=== PATIENT | female | born 1970 | race Caucasian/White ===

== ENCOUNTER 2017-12-09 16:16 | Inpatient (IN) | payer MEDICAID ==
[~2017-12-09] VITALS: Ht 162.6 cm; Wt 46.8 kg
[2017-12-09] MEDS ORDERED: VENL-53 PO (17:20)
[2017-12-09] MEDS ORDERED: DIVA125T32 PO (17:20)
[2017-12-09] MEDS ORDERED: GABA-529 PO (17:20)
[2017-12-09 17:35] LABS: BASOPHILS % (AUTO) 0.7 % (0.0-2.0); EOSINOPHILS % (AUTO) 0.7 % (1.0-6.0); HEMATOCRIT 33.4 % (36-46); HEMOGLOBIN 11.4 g/dL (12.0-16.0); LYMPHOCYTES # (AUTO) 1.2 K/uL (1.0-4.8); MEAN CORPUSCULAR HEMOGLOBIN 28.4 pg (26.0-34.0); MEAN CORPUSCULAR HGB CONC 34.1 G/dL (31.0-37.0); MEAN CORPUSCULAR VOLUME 83 fL (80-100); MONOCYTES # (AUTO) 0.6 K/uL (0.1-1.0); MONOCYTES % (AUTO) 9.7 % (2.0-9.0); NEUTROPHILS # (AUTO) 4.3 K/uL (1.8-7.7); NEUTROPHILS % (AUTO) 69.9 % (40.0-70.0); PLATELET COUNT (AUTO) 198 K/uL (150-450); RED BLOOD CELL COUNT(AUTO) 4.01 MIL/uL (4.00-5.20)
[2017-12-09 17:50] LABS: AMPHET/METH SCREEN,URINE POSITIVE (NEGATIVE); BARBITURATE SCREEN, URINE NEGATIVE (NEGATIVE); BENZODIAZEPINES SCREEN,URINE NEGATIVE (NEGATIVE); CANNABINOID SCREEN,URINE NEGATIVE (NEGATIVE); COCAINE SCREEN,URINE NEGATIVE (NEGATIVE); METHADONE SCREEN, URINE NEGATIVE (NEGATIVE); OPIATE SCREEN,URINE NEGATIVE (NEGATIVE)
[2017-12-09 17:51] LABS: PHENCYCLIDINE SCREEN,URINE NEGATIVE (NEGATIVE)
[2017-12-09 17:54] LABS: ANION GAP 9 mmol/L (8-16); CALCIUM, TOTAL 8.7 mg/dL (8.8-10.5); CARBON DIOXIDE 26 mmol/L (22-29); CHLORIDE 102 mmol/L (98-107); CREATININE 0.65 mg/dL (0.60-1.30); GLOMERULAR FILTR. RATE CALC > 60 mL/min (>60); GLUCOSE,RANDOM 100 mg/dL (70-110); POTASSIUM 3.7 mmol/L (3.5-5.1); SODIUM SERUM 137 mmol/L (136-145); UREA NITROGEN, BLOOD 20 mg/dL (7-18)
[2017-12-09 17:55] LABS: ALANINE AMINOTRANSFERASE 21 U/L (12-78); ALBUMIN 3.4 g/dL (3.4-5.0); ALKALINE PHOSPHATASE 85 U/L (46-116); ASPARTATE AMINOTRANSFERASE 21 U/L (15-37); BILIRUBIN,TOTAL 0.3 mg/dL (0.1-1.0); TOTAL PROTEIN, SERUM 9.1 g/dL (6.4-8.2)
[2017-12-09 17:58] LABS: VALPROIC ACID < 3 mcg/mL (50-100)
[2017-12-09] MEDS ORDERED: LORazepam 2 MG TABLET PO PRN (20:30)
[2017-12-09] MEDS ORDERED: OLANZapine 5 MG RAPDIS TABLET PO PRN (20:30)
[2017-12-09] MEDS ORDERED: ZOLPIDEM TARTRATE 10 MG TABLET PO PRN (20:30)
[2017-12-10] MEDS ORDERED: FOLI1 PO (08:45)
[2017-12-10] MEDS ORDERED: OMEP20 PO (08:45)
[2017-12-10] MEDS ORDERED: BICT1TAB PO (08:45)
[2017-12-10] MEDS ORDERED: GABA-533 PO (08:48)
[2017-12-10] MEDS ORDERED: THIA100T67 PO (08:54)
[2017-12-10] MEDS ORDERED: DIVA-78 PO (08:54)
[2017-12-10] MEDS ORDERED: VENL-193 PO (08:54)
[2017-12-10] MEDS ORDERED: PRAZ2 PO (08:54)
[2017-12-10] MEDS ORDERED: ALBU8HFA IH (08:54)
[2017-12-10] MEDS ORDERED: ACET-66 PO (08:54)
[2017-12-10] MEDS ORDERED: AMLO-511 PO (08:54)
[2017-12-10 09:01] LABS: CHOL/HDL RATIO 4.9 (3.9-5.7)
[2017-12-10] MEDS ORDERED: ACETAMINOPHEN 325 MG TABLET PO PRN (12:15)
[2017-12-10] MEDS ORDERED: GuaiFENesin/D-METHORPHAN [SUGAR-FREE] 200-20MG/10 ML SYRUP UDCUP PO PRN (12:15)
[2017-12-10] MEDS ORDERED: PROMETHAZINE HCL 25 MG TABLET PO PRN (12:15)
[2017-12-10] MEDS ORDERED: MAGNESIUM HYDROXIDE SUSPENSION 30 ML UDCUP PO PRN (12:15)
[2017-12-10] MEDS ORDERED: HydrOXYzine PAMOATE 50 MG CAPSULE PO PRN (12:15)
[2017-12-10] MEDS ORDERED: TUBERCULIN, PURIFIED PROTEIN DERIVATIVE 5 TU/0.1 ML SYG ID ONE (12:15)
[2017-12-10] MEDS ORDERED: MAG HYDROX/AL HYDROX/SIMETH ES 30 ML SUSPENSION UDCUP PO PRN (12:15)
[2017-12-10 12:30] VITALS: BP 116/75
[2017-12-10] MEDS ORDERED: ALBUTEROL SULFATE HFA 90 MCG/PUFF 8 GM INHALER IH PRN (13:15)
[2017-12-10] MEDS ORDERED: PNEUMOCOCCAL VACCINE POLYVALENT 0.5 ML VIAL [PPSV23] IM ONE (14:45)
[2017-12-10 14:58] VITALS: BP 129/86
[2017-12-10 20:11] VITALS: BP 121/71
[2017-12-10] MEDS ORDERED: OLANZapine 10 MG RAPDIS TABLET PO SCH (21:00)
[2017-12-10] MEDS: GABAPENTIN 400 MG CAPSULE PO SCH (21:00)
[2017-12-10] MEDS ORDERED: DIVALPROEX SODIUM 500 MG ER TABLET PO SCH (21:00)
[2017-12-10] MEDS: THIAMINE HCL 100 MG TABLET PO SCH (21:18)
[2017-12-10] MEDS: PRAZOSIN HCL 2 MG CAPSULE PO SCH (21:18)
[2017-12-11 08:17] VITALS: BP 109/64
[2017-12-11] MEDS ORDERED: FOLIC ACID 1 MG TABLET PO SCH (09:00)
[2017-12-11] MEDS ORDERED: *PATIENT'S OWN MED [ENTER DRUG, DOSE, FREQUENCY IN COMMENTS] CLINICAL ONE (09:00)
[2017-12-11] MEDS ORDERED: DULoxetine HCL 20 MG CAPSULE PO SCH (09:00)
[2017-12-11] MEDS ORDERED: FLUoxetine HCL 20 MG CAPSULE PO SCH (09:00)
[2017-12-11] MEDS: BIKTARVY PO SCH (09:39)
[2017-12-11] MEDS: MULTIVITAMINS WITH MINERALS, THERAPEUTIC TABLET PO SCH ×2 (09:40→09:52)
[2017-12-11] MEDS: OMEPRAZOLE 20 MG CAPSULE PO SCH (09:40)
[2017-12-11] MEDS: NALTREXONE HCL 50 MG TABLET PO SCH (09:40)
[2017-12-11] MEDS: GABAPENTIN 400 MG CAPSULE PO SCH ×4 (09:52→21:21)
[2017-12-11] MEDS: FOLIC ACID 1 MG TABLET PO SCH (09:52)
[2017-12-11] MEDS: THIAMINE HCL 100 MG TABLET PO SCH ×2 (09:53→17:06)
[2017-12-11] MEDS: AmLODIPine BESYLATE 5 MG TABLET PO SCH (09:53)
[2017-12-11] MEDS ORDERED: OLAN10TA22 PO (12:57)
[2017-12-11] MEDS ORDERED: PRAZ2 PO (12:57)
[2017-12-11] MEDS ORDERED: DULO20CA30 PO (12:57)
[2017-12-11] MEDS ORDERED: GABA-533 PO (12:57)
[2017-12-11] MEDS ORDERED: DIVA250T45 PO (12:57)
[2017-12-11] MEDS ORDERED: NALT50TA PO (12:57)
[2017-12-11 16:33] VITALS: BP 106/71
[2017-12-11] MEDS ORDERED: DIVALPROEX SODIUM 250 MG ER TABLET PO SCH (21:00)
[2017-12-11] MEDS ORDERED: OLANZapine 5 MG RAPDIS TABLET PO SCH (21:00)
[2017-12-11 21:20] VITALS: BP 119/69
[2017-12-11] MEDS: PRAZOSIN HCL 2 MG CAPSULE PO SCH (21:22)
[2017-12-12] MEDS ORDERED: DIVA250T45 PO (04:29)
[2017-12-12] MEDS ORDERED: DULO30CA2 PO (04:31)
[2017-12-12] MEDS ORDERED: GABA-533 PO (04:32)
[2017-12-12] MEDS ORDERED: NALT50TA6 PO (04:33)
[2017-12-12] MEDS ORDERED: OLAN5TAB40 PO (04:35)
[2017-12-12] MEDS ORDERED: PRAZ2 PO (04:36)
[2017-12-12 06:19] VITALS: BP 121/74
[2017-12-12 08:00] VITALS: BP 130/83
[2017-12-12] MEDS ORDERED: DULoxetine HCL 30 MG CAPSULE PO SCH (09:00)
[2017-12-12] MEDS ORDERED: DULoxetine HCL 20 MG CAPSULE PO SCH (09:00)
[2017-12-12] MEDS: AmLODIPine BESYLATE 5 MG TABLET PO SCH (09:52)
[2017-12-12] MEDS: OMEPRAZOLE 20 MG CAPSULE PO SCH (09:52)
[2017-12-12] MEDS: THIAMINE HCL 100 MG TABLET PO SCH (09:53)
[2017-12-12] MEDS: FOLIC ACID 1 MG TABLET PO SCH (09:53)
[2017-12-12] MEDS: GABAPENTIN 400 MG CAPSULE PO SCH (09:53)
[2017-12-12] MEDS: NALTREXONE HCL 50 MG TABLET PO SCH (09:53)
[2017-12-12] MEDS: BIKTARVY PO SCH (09:54)
[2017-12-13] MEDS ORDERED: BIKTARVY PO SCH (09:00)
== END 2017-12-12 13:15 | disposition home or self-care (01) | DRG 750 ==
LOC: EMS 16:17 → AHU 12-10 11:09 → B2S 12-10 11:44
PROVIDERS: ADMIT Psychiatry & Neurology Psychiatry; ATTEND Psychiatry & Neurology Psychiatry
DX: F25.9 Schizoaffective disorder, unspecified (principal); B20 Human immunodeficiency virus [HIV] disease; R45.851 Suicidal ideations; I10 Essential (primary) hypertension; I34.1 Nonrheumatic mitral (valve) prolapse; J44.9 Chronic obstructive pulmonary disease, unspecified; K21.9 Gastro-esophageal reflux disease without esophagitis; S61.511A Laceration without foreign body of right wrist, initial encounter; S61.512A Laceration without foreign body of left wrist, initial encounter; X58.XXXA Exposure to other specified factors, initial encounter; Z79.899 Other long term (current) drug therapy; Z91.19 Patient's noncompliance with other medical treatment and regimen; Z28.21 Immunization not carried out because of patient refusal; Z88.6 Allergy status to analgesic agent; Z88.8 Allergy status to other drugs, medicaments and biological substances; Y93.89 Activity, other specified; Y92.89 Other specified places as the place of occurrence of the external cause; Y99.8 Other external cause status
CPT/HCPCS: 93005; 99285; G0480

== ENCOUNTER 2020-03-09 20:03 | Emergency (ER) | payer MEDICAID ==
[~2020-03-09] VITALS: Ht 162.6 cm; Wt 48.2 kg
[~2020-03-09 20:03] MED LIST: AMLO-257 PO; DIVA-85 PO; DULO20CA27 PO; DULO30CA96 PO; GABA-1201 PO; GABA-533 PO; NALT50TA PO; NALT50TA6 PO; OLAN10TA22 PO; OLAN5TAB40 PO; OMEP20 PO; PRAZ2 PO
[2020-03-09] MEDS ORDERED: DARU1TAB3 PO (20:20)
[2020-03-09] MEDS ORDERED: BACITRACIN 0.9 GM PACKET OINTMENT TP ONE (22:45)
[2020-03-09 23:17] VITALS: BP 122/75
== END 2020-03-10 00:18 | disposition home or self-care (01) ==
LOC: EMS 20:04
DX: S10.91XA Abrasion of unspecified part of neck, initial encounter (principal); X58.XXXA Exposure to other specified factors, initial encounter; Y93.89 Activity, other specified; Y92.89 Other specified places as the place of occurrence of the external cause; Y99.8 Other external cause status

== ENCOUNTER 2020-03-15 07:30 | Emergency (ER) | payer MEDICAID ==
[~2020-03-15] VITALS: Ht 162.6 cm; Wt 45.5 kg
[~2020-03-15 07:30] MED LIST changes: +DARU1TAB3 PO; -DIVA-85 PO; -DULO20CA27 PO; -DULO30CA96 PO; -GABA-1201 PO; -GABA-533 PO; -NALT50TA PO; -NALT50TA6 PO; -OLAN10TA22 PO
[2020-03-15] MEDS ORDERED: SODIUM CHLORIDE 0.9% 1,000 ML IV ONE (07:57)
[2020-03-15] MEDS ORDERED: ACETAMINOPHEN 325 MG TABLET PO ONE (08:00)
[2020-03-15 08:40] LABS: BASOPHILS % (AUTO) 0.2 % (0.0-2.0); EOSINOPHILS % (AUTO) 0 % (1.0-6.0); HEMATOCRIT 31.8 % (36-46); HEMOGLOBIN 11.1 g/dL (12.0-16.0); LYMPHOCYTES # (AUTO) 1.3 K/uL (1.0-4.8); LYMPHOCYTES % (AUTO) 8.8 % (22.0-44.0); MEAN CORPUSCULAR HGB CONC 34.9 G/dL (31.0-37.0); MEAN CORPUSCULAR VOLUME 83 fL (80-100); MONOCYTES # (AUTO) 0.9 K/uL (0.1-1.0); MONOCYTES % (AUTO) 6.4 % (2.0-9.0); NEUTROPHILS # (AUTO) 12.1 K/uL (1.8-7.7); NEUTROPHILS % (AUTO) 84.6 % (40.0-70.0); RED BLOOD CELL COUNT(AUTO) 3.82 MIL/uL (4.00-5.20); RED CELL DISTRIBUTION WIDTH 13.9 % (11.5-14.5)
[2020-03-15 08:56] LABS: D-DIMER 1.12 mg/L FEU (0.00-0.50); INR 1.2 (0.9-1.1); PROTHROMBIN TIME 12.4 SEC (9.4-11.6)
[2020-03-15 08:57] LABS: PLATELET COUNT (AUTO) 100 K/uL (150-450)
[2020-03-15 09:14] LABS: LACTIC ACID 1.5 mmol/L (0.4-2.0)
[2020-03-15] MEDS ORDERED: CefTRIAXone 1 GM/DEXTROSE 50 ML IV ONE (09:15)
[2020-03-15] MEDS ORDERED: AZITHROMYCIN 500 MG/NS 250 ML IV ONE (09:15)
[2020-03-15 09:20] LABS: ALBUMIN 3.3 g/dL (3.4-5.0); BILIRUBIN,TOTAL 0.7 mg/dL (0.1-1.0); CALCIUM, TOTAL 8.4 mg/dL (8.8-10.5); CREATININE 1.05 mg/dL (0.60-1.30); TOTAL PROTEIN, SERUM 8.9 g/dL (6.4-8.2)
[2020-03-15 09:26] LABS: POTASSIUM 2.6 mmol/L (3.5-5.1)
[2020-03-15] MEDS ORDERED: IOVERSOL 320 MG/ML 100 ML VIAL ONE (09:26)
[2020-03-15] MEDS ORDERED: SODIUM CHLORIDE 0.9% 100 ML ONE (09:26)
[2020-03-15] MEDS ORDERED: POTASSIUM CHLORIDE 20 MEQ ER TABLET PO ONE (09:45)
[2020-03-15 15:07] VITALS: BP 122/65
== END 2020-03-15 15:44 | disposition home or self-care (01) ==
LOC: EMS 07:34
DX: J18.9 Pneumonia, unspecified organism (principal); E87.6 Hypokalemia; F17.210 Nicotine dependence, cigarettes, uncomplicated; Z88.6 Allergy status to analgesic agent; Z79.899 Other long term (current) drug therapy
CPT/HCPCS: 36415; 71045; 71275; 80053; 82550; 83605; 84484; 84702; 85025; 85379; 85610; 85730; 87040; 93005; 96361; 96365; 96368; 99285; J0456; J0696; J7050; Q9967

== ENCOUNTER 2020-07-22 00:07 | Emergency (ER) | payer MEDICAID ==
[~2020-07-22] VITALS: Ht 162.6 cm; Wt 46.4 kg
[2020-07-22 03:42] LABS: BASOPHILS % (AUTO) 0.4 % (0.0-2.0); EOSINOPHILS % (AUTO) 2.2 % (1.0-6.0); HEMATOCRIT 32.5 % (36-46); HEMOGLOBIN 10.8 g/dL (12.0-16.0); LYMPHOCYTES # (AUTO) 1.4 K/uL (1.0-4.8); MEAN CORPUSCULAR HEMOGLOBIN 27.7 pg (26.0-34.0); MEAN CORPUSCULAR HGB CONC 33.2 G/dL (31.0-37.0); MEAN CORPUSCULAR VOLUME 83 fL (80-100); MONOCYTES # (AUTO) 0.7 K/uL (0.1-1.0); MONOCYTES % (AUTO) 10.6 % (2.0-9.0); NEUTROPHILS # (AUTO) 4.1 K/uL (1.8-7.7); NEUTROPHILS % (AUTO) 64.8 % (40.0-70.0); PLATELET COUNT (AUTO) 163 K/uL (150-450); RED BLOOD CELL COUNT(AUTO) 3.89 MIL/uL (4.00-5.20); RED CELL DISTRIBUTION WIDTH 14.9 % (11.5-14.5)
[2020-07-22 03:54] LABS: ANION GAP 10 mmol/L (8-16); CALCIUM, TOTAL 9.1 mg/dL (8.8-10.5); CARBON DIOXIDE 26 mmol/L (22-29); CHLORIDE 106 mmol/L (98-107); CREATININE 0.67 mg/dL (0.60-1.30); GLOMERULAR FILTR. RATE CALC > 60 mL/min (>60); GLUCOSE,RANDOM 109 mg/dL (70-110); POTASSIUM 3.4 mmol/L (3.5-5.1); SODIUM SERUM 142 mmol/L (136-145); UREA NITROGEN, BLOOD 19 mg/dL (7-18)
[2020-07-22 04:01] LABS: ALANINE AMINOTRANSFERASE 16 U/L (12-78); ALBUMIN 3.4 g/dL (3.4-5.0); ALKALINE PHOSPHATASE 101 U/L (46-116); ASPARTATE AMINOTRANSFERASE 19 U/L (15-37); BILIRUBIN,TOTAL 0.2 mg/dL (0.1-1.0); TOTAL PROTEIN, SERUM 9.8 g/dL (6.4-8.2)
[2020-07-22] MEDS ORDERED: ACETAMINOPHEN 325 MG TABLET PO ONE (06:15)
[2020-07-22 06:22] VITALS: BP 122/88
== END 2020-07-22 06:29 | disposition home or self-care (01) ==
LOC: EMS 00:08
DX: R07.89 Other chest pain (principal); F17.210 Nicotine dependence, cigarettes, uncomplicated
CPT/HCPCS: 93005; 99285; 36415-L1; 36415-TC; 71045-TC

== ENCOUNTER 2022-08-29 01:33 | Inpatient (IN) | payer MEDICAID ==
[~2022-08-29] VITALS: Ht 154.9 cm; Wt 53.2 kg
[~2022-08-29 01:33] MED LIST changes: -OLAN5TAB40 PO; +OLAN5TAB94 PO
[2022-08-29] MEDS ORDERED: SODIUM CHLORIDE 0.9% 1,000 ML IV ONE (02:30)
[2022-08-29] MEDS ORDERED: ACETAMINOPHEN 325 MG TABLET PO ONE (02:30)
[2022-08-29] MEDS ORDERED: LIDOCAINE 5% TRANSDERMAL PATCH TD ONE (03:00)
[2022-08-29 03:28] LABS: COVID AG,FIA SOURCE NASOPHARYNGEAL
[2022-08-29 03:33] LABS: BASOPHILS % (AUTO) 0.5 % (0.0-2.0); EOSINOPHILS % (AUTO) 1.7 % (1.0-6.0); HEMATOCRIT 29.1 % (36-46); HEMOGLOBIN 9.3 g/dL (12.0-16.0); LYMPHOCYTES # (AUTO) 3.1 K/uL (1.0-4.8); LYMPHOCYTES % (AUTO) 43.7 % (22.0-44.0); MEAN CORPUSCULAR HEMOGLOBIN 26.7 pg (26.0-34.0); MEAN CORPUSCULAR HGB CONC 31.9 G/dL (31.0-37.0); MEAN CORPUSCULAR VOLUME 84 fL (80-100); MONOCYTES # (AUTO) 0.6 K/uL (0.1-1.0); NEUTROPHILS # (AUTO) 3.2 K/uL (1.8-7.7); NEUTROPHILS % (AUTO) 46.1 % (40.0-70.0); PLATELET COUNT (AUTO) 117 K/uL (150-450); RED BLOOD CELL COUNT(AUTO) 3.48 MIL/uL (4.00-5.20); RED CELL DISTRIBUTION WIDTH 19.1 % (11.5-14.5)
[2022-08-29 03:34] LABS: ANION GAP 8 mmol/L (8-16); CALCIUM, TOTAL 8.2 mg/dL (8.8-10.5); CARBON DIOXIDE 27 mmol/L (22-29); CHLORIDE 104 mmol/L (98-107); CREATININE 0.82 mg/dL (0.60-1.30); GLOMERULAR FILTR. RATE CALC > 60 mL/min (>60); GLUCOSE,RANDOM 95 mg/dL (70-110); POTASSIUM 3.8 mmol/L (3.5-5.1); SODIUM SERUM 139 mmol/L (136-145); UREA NITROGEN, BLOOD 16 mg/dL (7-18)
[2022-08-29 03:39] LABS: ALANINE AMINOTRANSFERASE 39 U/L (12-78); ALBUMIN 2.6 g/dL (3.4-5.0); ALKALINE PHOSPHATASE 157 U/L (46-116); ASPARTATE AMINOTRANSFERASE 95 U/L (15-37); BILIRUBIN,TOTAL 0.3 mg/dL (0.1-1.0); CREATINE KINASE, TOTAL ONLY 71 U/L (26-192); TOTAL PROTEIN, SERUM 9.7 g/dL (6.4-8.2)
[2022-08-29] MEDS ORDERED: ONDANSETRON HCL 4 MG/2 ML VIAL IVP PRN (03:45)
[2022-08-29 03:50] LABS: INFLUENZA TYPE A NEGATIVE FOR TYPE A (NEGATIVE); INFLUENZA TYPE B NEGATIVE FOR TYPE B (NEGATIVE)
[2022-08-29] MEDS ORDERED: IOHEXOL 350 MG/ML 100 ML VIAL ONE (03:56)
[2022-08-29] MEDS ORDERED: SODIUM CHLORIDE 0.9% 100 ML ONE (03:56)
[2022-08-29 04:03] LABS: B-TYPE NATRIURETIC PEPTIDE 1660 pg/mL (0-100)
[2022-08-29] MEDS ORDERED: MORPHINE SULFATE 2 MG/ML SYRINGE IVP ONE (04:30)
[2022-08-29 04:53] LABS: % IRON SATURATION 11.3 % (22-44)
[2022-08-29] MEDS: CefTRIAXone 1 GM/DEXTROSE 50 ML IV SCH (05:00)
[2022-08-29] MEDS: AZITHROMYCIN 500 MG/NS 250 ML IV SCH (05:32)
[2022-08-29] MEDS ORDERED: HEPARIN SODIUM,PORCINE 5,000 UNITS/ML VIAL SQ SCH (08:00)
[2022-08-29] MEDS: DARUNAVIR/COB/EMTRI/TENOF ALAF 800-150-200-10 MG TABLET PO SCH (08:33)
[2022-08-29 09:37] LABS: APPEARANCE,URINE CLEAR (CLEAR); BILIRUBIN,URINE NEGATIVE (NEGATIVE); GLUCOSE, URINE (UA) NEGATIVE (NEGATIVE); KETONES,URINE NEGATIVE (NEGATIVE); LEUKOCYTE ESTERASE ,URINE TRACE (NEGATIVE); NITRATE,URINE NEGATIVE (NEGATIVE); OCCULT BLOOD,URINE SMALL (NEGATIVE); PROTEIN,URINE 300-600,SEE CONFIRM mg/dL (NEGATIVE); UROBILINOGEN,URINE <=1.0 mg/dL (<=1.0)
[2022-08-29 11:18] LABS: BACTERIA,URINE None Seen /HPF (None Seen); RBC,URINE None Seen /HPF (0-2); SQUAMOUS EPITHELIAL CELL,UR Few /LPF (None Seen); SULFOSALICYLIC ACID,URINE 2+ (Negative)
[2022-08-29] MEDS: HEPARIN SODIUM,PORCINE 5,000 UNITS/ML VIAL SQ SCH ×3 (13:59→23:55)
[2022-08-29] MEDS ORDERED: LORazepam 1 MG TABLET PO ONE (15:45)
[2022-08-29 16:15] VITALS: BP 110/69
[2022-08-29] MEDS: CLINDAMYCIN HCL 150 MG CAPSULE PO SCH ×2 (18:21→23:56)
[2022-08-29 18:45] VITALS: BP 138/86
[2022-08-29 20:22] VITALS: BP 141/90
[2022-08-29 23:53] VITALS: BP 129/87
[2022-08-29] MEDS: OLANZapine 5 MG RAPDIS TABLET PO SCH (23:55)
[2022-08-30] MEDS: OLANZapine 5 MG RAPDIS TABLET PO SCH
[2022-08-30] MEDS ORDERED: SODIUM CHLORIDE 0.9% 1,000 ML IV ONE (00:15)
[2022-08-30] MEDS: CefTRIAXone 1 GM/DEXTROSE 50 ML IV SCH (04:18)
[2022-08-30 04:42] VITALS: BP 134/80
[2022-08-30] MEDS: AZITHROMYCIN 500 MG/NS 250 ML IV SCH (05:00)
[2022-08-30 06:57] LABS: BASOPHILS % (AUTO) 0.7 % (0.0-2.0); HEMATOCRIT 26.9 % (36-46); HEMOGLOBIN 8.6 g/dL (12.0-16.0); LYMPHOCYTES # (AUTO) 3.1 K/uL (1.0-4.8); LYMPHOCYTES % (AUTO) 51.4 % (22.0-44.0); MEAN CORPUSCULAR HEMOGLOBIN 26.9 pg (26.0-34.0); MEAN CORPUSCULAR HGB CONC 32.1 G/dL (31.0-37.0); MEAN CORPUSCULAR VOLUME 84 fL (80-100); MONOCYTES # (AUTO) 0.6 K/uL (0.1-1.0); MONOCYTES % (AUTO) 9.8 % (2.0-9.0); NEUTROPHILS # (AUTO) 2.2 K/uL (1.8-7.7); NEUTROPHILS % (AUTO) 37.1 % (40.0-70.0); PLATELET COUNT (AUTO) 111 K/uL (150-450); RED CELL DISTRIBUTION WIDTH 18.9 % (11.5-14.5)
[2022-08-30 07:15] LABS: ANION GAP 6 mmol/L (8-16); CARBON DIOXIDE 28 mmol/L (22-29); CHLORIDE 106 mmol/L (98-107); CREATININE 0.96 mg/dL (0.60-1.30); GLOMERULAR FILTR. RATE CALC > 60 mL/min (>60); GLUCOSE,RANDOM 86 mg/dL (70-110); POTASSIUM 4.1 mmol/L (3.5-5.1); SODIUM SERUM 140 mmol/L (136-145); UREA NITROGEN, BLOOD 18 mg/dL (7-18)
[2022-08-30] MEDS: HEPARIN SODIUM,PORCINE 5,000 UNITS/ML VIAL SQ SCH ×2 (08:00→16:00)
[2022-08-30 08:35] VITALS: BP 119/62
[2022-08-30] MEDS: DARUNAVIR/COB/EMTRI/TENOF ALAF 800-150-200-10 MG TABLET PO SCH (08:55)
[2022-08-30] MEDS: CLINDAMYCIN HCL 150 MG CAPSULE PO SCH ×3 (12:00→12:51)
[2022-08-30 12:09] VITALS: BP 131/79
[2022-08-30] MEDS ORDERED: VANCOMYCIN HCL 750 MG in DEXTROSE 5%-WATER 250 ML IV ONE (13:00)
[2022-08-30 16:02] VITALS: BP 120/88
[2022-08-30] MEDS: VANCOMYCIN HCL 750 MG in DEXTROSE 5%-WATER 250 ML IV SCH ×2 (20:00→20:31)
[2022-08-30 22:13] LABS: INR 1.1 (0.9-1.1); PROTHROMBIN TIME 11.6 SEC (9.4-11.6)
[2022-08-30 22:46] VITALS: BP 143/95
[2022-08-31 01:26] VITALS: BP 123/65
[2022-08-31] MEDS: CefTRIAXone 1 GM/DEXTROSE 50 ML IV SCH (03:10)
[2022-08-31] MEDS: AZITHROMYCIN 500 MG/NS 250 ML IV SCH (04:13)
[2022-08-31] MEDS ORDERED: MORPHINE SULFATE 2 MG/ML SYRINGE IVP ONE ×2 (05:45→23:00)
[2022-08-31] MEDS: HEPARIN SODIUM,PORCINE 5,000 UNITS/ML VIAL SQ SCH ×3 (08:00→16:00)
[2022-08-31 08:40] VITALS: BP 122/81
[2022-08-31] MEDS ORDERED: GADOTERATE MEGLUMINE 10 MMOL/20 ML VIAL IVP ONE (08:40)
[2022-08-31] MEDS: VANCOMYCIN HCL 750 MG in DEXTROSE 5%-WATER 250 ML IV SCH ×2 (09:07→20:38)
[2022-08-31 09:57] LABS: ANION GAP 5 mmol/L (8-16); CALCIUM, TOTAL 7.8 mg/dL (8.8-10.5); CARBON DIOXIDE 29 mmol/L (22-29); CHLORIDE 107 mmol/L (98-107); CREATININE 0.92 mg/dL (0.60-1.30); GLOMERULAR FILTR. RATE CALC > 60 mL/min (>60); GLUCOSE,RANDOM 119 mg/dL (70-110); POTASSIUM 3.5 mmol/L (3.5-5.1); SODIUM SERUM 141 mmol/L (136-145); UREA NITROGEN, BLOOD 17 mg/dL (7-18)
[2022-08-31] MEDS: DARUNAVIR/COB/EMTRI/TENOF ALAF 800-150-200-10 MG TABLET PO SCH (11:40)
[2022-08-31 11:59] VITALS: BP 138/87
[2022-08-31] MEDS ORDERED: LORazepam 2 MG/ML VIAL IVP ONE (14:30)
[2022-08-31] MEDS ORDERED: LORazepam 2 MG/ML VIAL IVP PRN (15:00)
[2022-08-31] MEDS ORDERED: SODIUM CHLORIDE 0.9% 100 ML ONE (15:38)
[2022-08-31] MEDS ORDERED: IOHEXOL 350 MG/ML 100 ML VIAL ONE (15:38)
[2022-08-31 16:47] VITALS: BP 138/80
[2022-08-31 19:55] VITALS: BP 135/76
[2022-08-31] MEDS: OLANZapine 5 MG RAPDIS TABLET PO SCH (21:00)
[2022-08-31] MEDS: TERBINAFINE HCL 1% 30 GM CREAM TP SCH (21:00)
[2022-08-31] MEDS: ALBUTEROL SULFATE 2.5 MG/0.5 ML NEB SOLUTION NEB PRN (23:41)
[2022-09-01] VITALS (7 sets, daily range): BP systolic 148–162; BP diastolic 67–114
[2022-09-01] MEDS: CefTRIAXone 1 GM/DEXTROSE 50 ML IV SCH (03:19)
[2022-09-01] MEDS: AZITHROMYCIN 500 MG/NS 250 ML IV SCH (04:17)
[2022-09-01 06:06] LABS: QUANTIFERON, TB GOLD PLUS Negative (Negative)
[2022-09-01] MEDS: HEPARIN SODIUM,PORCINE 5,000 UNITS/ML VIAL SQ SCH ×3 (08:00→15:50)
[2022-09-01] MEDS: TERBINAFINE HCL 1% 30 GM CREAM TP SCH (08:25)
[2022-09-01] MEDS: DARUNAVIR/COB/EMTRI/TENOF ALAF 800-150-200-10 MG TABLET PO SCH (08:29)
[2022-09-01] MEDS: VANCOMYCIN HCL 750 MG in DEXTROSE 5%-WATER 250 ML IV SCH (08:30)
[2022-09-01] MEDS ORDERED: SODIUM CHLORIDE 0.9% 100 ML ONE (08:54)
[2022-09-01] MEDS ORDERED: IOHEXOL 350 MG/ML 100 ML VIAL ONE (08:54)
[2022-09-01] MEDS ORDERED: LORazepam 2 MG/ML VIAL IVP ONE ×2 (15:30→15:45)
[2022-09-01] MEDS: CefTRIAXone SODIUM 2 GM in DEXTROSE 5%-WATER 50 ML IV SCH (16:03)
[2022-09-01] MEDS ORDERED: FLUCONAZOLE 150 MG TABLET PO SCH (17:00)
[2022-09-01] MEDS: OLANZapine 5 MG RAPDIS TABLET PO SCH (20:53)
[2022-09-02] MEDS ORDERED: HALOPERIDOL LACTATE 5 MG/ML VIAL IM ONE (04:45)
[2022-09-02] MEDS ORDERED: DiphenhydrAMINE HCL 50 MG/ML VIAL IM ONE (04:45)
[2022-09-02] MEDS ORDERED: LORazepam 2 MG/ML VIAL IM ONE (04:45)
[2022-09-02] MEDS: HEPARIN SODIUM,PORCINE 5,000 UNITS/ML VIAL SQ SCH ×3 (08:00→14:09)
[2022-09-02] MEDS: DARUNAVIR/COB/EMTRI/TENOF ALAF 800-150-200-10 MG TABLET PO SCH (08:00)
[2022-09-02 08:27] VITALS: BP 143/97
[2022-09-02 11:59] VITALS: BP 139/75
[2022-09-02] MEDS: CefTRIAXone SODIUM 2 GM in DEXTROSE 5%-WATER 50 ML IV SCH (15:19)
[2022-09-02 16:15] VITALS: BP 153/94
[2022-09-02 20:19] VITALS: BP 147/98
[2022-09-02] MEDS: OLANZapine 5 MG RAPDIS TABLET PO SCH (21:00)
[2022-09-02 23:41] VITALS: BP 155/91
[2022-09-03 03:46] VITALS: BP 146/91
[2022-09-03] MEDS: ALBUTEROL SULFATE 2.5 MG/0.5 ML NEB SOLUTION NEB PRN ×2 (07:06→20:07)
[2022-09-03 07:18] LABS: ANION GAP 5 mmol/L (8-16); CALCIUM, TOTAL 8.4 mg/dL (8.8-10.5); CARBON DIOXIDE 27 mmol/L (22-29); CHLORIDE 106 mmol/L (98-107); CREATININE 0.87 mg/dL (0.60-1.30); GLOMERULAR FILTR. RATE CALC > 60 mL/min (>60); GLUCOSE,RANDOM 112 mg/dL (70-110); POTASSIUM 4.1 mmol/L (3.5-5.1); SODIUM SERUM 138 mmol/L (136-145); UREA NITROGEN, BLOOD 16 mg/dL (7-18)
[2022-09-03 07:27] LABS: BASOPHILS % (AUTO) 0.4 % (0.0-2.0); EOSINOPHILS % (AUTO) 2.6 % (1.0-6.0); HEMATOCRIT 27.6 % (36-46); LYMPHOCYTES # (AUTO) 3.4 K/uL (1.0-4.8); LYMPHOCYTES % (AUTO) 51.6 % (22.0-44.0); MEAN CORPUSCULAR HEMOGLOBIN 27.6 pg (26.0-34.0); MEAN CORPUSCULAR HGB CONC 32.5 G/dL (31.0-37.0); MEAN CORPUSCULAR VOLUME 85 fL (80-100); MONOCYTES # (AUTO) 0.5 K/uL (0.1-1.0); MONOCYTES % (AUTO) 7.2 % (2.0-9.0); NEUTROPHILS # (AUTO) 2.5 K/uL (1.8-7.7); NEUTROPHILS % (AUTO) 38.2 % (40.0-70.0); PLATELET COUNT (AUTO) 163 K/uL (150-450); RED BLOOD CELL COUNT(AUTO) 3.24 MIL/uL (4.00-5.20); RED CELL DISTRIBUTION WIDTH 18.5 % (11.5-14.5)
[2022-09-03 07:30] VITALS: BP 142/88
[2022-09-03] MEDS: HEPARIN SODIUM,PORCINE 5,000 UNITS/ML VIAL SQ SCH ×4 (08:00→23:39)
[2022-09-03] MEDS: MULTIVITAMINS WITH MINERALS, THERAPEUTIC TABLET PO SCH (09:00)
[2022-09-03 11:49] VITALS: BP 163/103
[2022-09-03] MEDS: ACETAMINOPHEN 325 MG TABLET PO PRN (12:28)
[2022-09-03 13:56] VITALS: BP 153/85
[2022-09-03] MEDS: AmLODIPine BESYLATE 5 MG TABLET PO SCH (14:01)
[2022-09-03] MEDS: CefTRIAXone SODIUM 2 GM in DEXTROSE 5%-WATER 50 ML IV SCH ×2 (14:01→15:00)
[2022-09-03] MEDS ORDERED: FLUCONAZOLE 200 MG/NACL ISOOSM 100 ML IV SCH (16:00)
[2022-09-03 16:04] VITALS: BP 157/96
[2022-09-03 20:53] VITALS: BP 146/91
[2022-09-03] MEDS: OLANZapine 5 MG RAPDIS TABLET PO SCH (21:00)
[2022-09-03 21:06] LABS: OVA AND PARASITES EXAM Final report
[2022-09-04] MEDS: ACETAMINOPHEN 325 MG TABLET PO PRN (00:05)
[2022-09-04] MEDS: ALBUTEROL SULFATE 2.5 MG/0.5 ML NEB SOLUTION NEB PRN (03:21)
[2022-09-04 05:25] VITALS: BP 138/98
[2022-09-04] MEDS: HEPARIN SODIUM,PORCINE 5,000 UNITS/ML VIAL SQ SCH (08:00)
[2022-09-04 08:21] VITALS: BP 115/116
[2022-09-04] MEDS ORDERED: SULFAMETHOX/TRIMETH DS 800-160 MG/TABLET PO SCH (09:00)
[2022-09-04] MEDS: AmLODIPine BESYLATE 5 MG TABLET PO SCH (09:10)
[2022-09-04] MEDS: MULTIVITAMINS WITH MINERALS, THERAPEUTIC TABLET PO SCH (09:10)
[2022-09-04] MEDS ORDERED: SODIUM CHLORIDE 0.9% 500 ML IV ONE (14:23)
[2022-09-04] MEDS: CefTRIAXone SODIUM 2 GM in DEXTROSE 5%-WATER 50 ML IV SCH (14:44)
[2022-09-04] MEDS ORDERED: FLUCONAZOLE 200 MG/NACL ISOOSM 100 ML IV SCH (16:00)
[2022-09-05 19:06] LABS: S PNEUMO SOURCE Urine; STREP PNEUMONIAE AG URINE Negative (Negative)
== END 2022-09-04 15:16 | disposition left against medical advice (07) | DRG 890 ==
LOC: EMS 01:34 → AHU 07:08 → 6S 13:02 → 5S 16:33 → 6S 09-03 14:58
PROVIDERS: ADMIT Internal Medicine; ATTEND Internal Medicine
DX: A41.9 Sepsis, unspecified organism (principal); B20 Human immunodeficiency virus [HIV] disease; G93.41 Metabolic encephalopathy; J96.01 Acute respiratory failure with hypoxia; E43 Unspecified severe protein-calorie malnutrition; F05 Delirium due to known physiological condition; J18.9 Pneumonia, unspecified organism; J91.8 Pleural effusion in other conditions classified elsewhere; I08.1 Rheumatic disorders of both mitral and tricuspid valves; B35.3 Tinea pedis; Z20.822 Contact with and (suspected) exposure to COVID-19; B95.0 Streptococcus, group A, as the cause of diseases classified elsewhere; K21.9 Gastro-esophageal reflux disease without esophagitis; I10 Essential (primary) hypertension; Z88.6 Allergy status to analgesic agent; Z87.891 Personal history of nicotine dependence; Z91.14 Patient's other noncompliance with medication regimen; Z91.199 Patient's noncompliance with other medical treatment and regimen due to unspecified reason; Z68.22 Body mass index [BMI] 22.0-22.9, adult
CPT/HCPCS: 70200; 70450; 71045; 71275; 74177; 76705; 80048; 80053; 81001; 81002; 82271; 82550; 83540; 83550; 83605; 83735; 83880; 84145; 84484; 85025; 85045; 85610; 86361; 86480; 86738; 87015; 87040; 87045; 87077; 87086; 87177; 87186; 87205; 87206; 87252; 87449; 87804; 87899; 89055; 92507; 92526; 92610; 93005; 93306; 94640; 99285; J0456; J0696; J1200; J1450; J1630; J1644; J2060; J2270; J2405; J3370; J7030; J7040; J7050; J7060; Q9967; 36415-L1; 36415-TC; J7613